=== PATIENT | male | born 1975 | race Two or more races ===

== ENCOUNTER 2019-07-24 06:05 | Emergency (ER) | payer OTHER ==
[2019-07-24 06:31] VITALS: TEMP 99.4; BMI 24.8
[2019-07-24] MEDS ORDERED: ACETAMINOPHEN 325 MG TABLET (FP) PO ONE (07:16)
[2019-07-24] MEDS ORDERED: LIDOCAINE 5% TOPICAL PATCH TP ONE (07:16)
[2019-07-24] MEDS ORDERED: IBUPROFEN 600 MG TABLET (FP) PO ONE (07:16)
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
[2019-07-24] MEDS ORDERED: DIPHTH,PERTUSS(ACELL),TET 0.5 ML DISP.SYRIN IM ONE (07:47)
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
[2019-07-24 10:02] VITALS: BP 142/75; PULSE 68
[2019-07-24] MEDS ORDERED: LIDOCAINE PATCH REMOVAL MC ONE (22:00)
== END 2019-07-24 10:02 | disposition home or self-care (01) ==
LOC: JER 06:05
PROC: 3E0234Z Introduction of Serum, Toxoid and Vaccine into Muscle, Percutaneous Approach (ICD-10-PCS; principal; 2019-07-24)
DX: M79.641 Pain in right hand (principal); V09.9XXA Pedestrian injured in unspecified transport accident, initial encounter; Y93.89 Activity, other specified; Y92.410 Unspecified street and highway as the place of occurrence of the external cause
CPT/HCPCS: 71046-TC-FY; 73110-TC-RT-FY; 73130-TC-RT-FY; 73523-TC-FY; 73562-TC-LT-FY; 73562-TC-RT-FY; 90715; 99282-25

== ENCOUNTER 2019-07-27 14:59 | Emergency (ER) | payer OTHER ==
[2019-07-27 15:08] VITALS: BP 122/83; PULSE 105; TEMP 98.4; BMI 29.0
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
== END 2019-07-27 19:05 | disposition home or self-care (01) ==
LOC: JER 14:59
DX: R07.89 Other chest pain (principal); V03.10XD Pedestrian on foot injured in collision with car, pick-up truck or van in traffic accident, subsequent encounter
CPT/HCPCS: 71260-TC; 74177-TC; 99281-25; Q9967

== ENCOUNTER 2020-02-03 04:44 | Day surgery (SDC) | payer OTHER ==
[2020-02-01 16:20] VITALS: BMI 25.5
--- NOTE | 2020-02-03 08:13 | HP ---
[employer] - Chief Complaint Chief Complaint: right knee pain - Past Medical History Allergies/Adverse Reactions: Allergies Allergy/AdvReac Type Severity Reaction Status Date / Time No Known Allergies Allergy Verified 02/01/20 16:06 - Current Medications Current Medications: Home Medications Medication Instructions Recorded NK [No Known Home Medication] 02/01/20 [facility] Physical Exam - Physical Examination General Appearance: Well Nourished, Well Developed, Alert & Oriented x3 ENT: Clear Lung: Normal air movement Extremities: Other (right knee- + swelling, + ttp, decr rom, + mcmurrays, nvi) Neurological: Intact, Alert, Oriented [facility] Impression/Plan - Impression/Plan Impression: right knee internal derangement Operative Procedure: right knee arthroscopy Date to be Performed: 02/03/20
[2020-02-03] MEDS ORDERED: DEXAMETHASONE SOD PHOSPHATE 4 MG/1 ML VIAL ONE (10:39)
[2020-02-03] MEDS ORDERED: KETOROLAC TROMETHAMINE 30 MG/1 ML VIAL ONE (10:39)
[2020-02-03] MEDS ORDERED: MIDAZOLAM HCL 2 MG/2 ML SINGLE DOSE VIAL ONE (10:39)
[2020-02-03] MEDS ORDERED: ceFAZolin SODIUM 1 GM VIAL ONE (10:39)
[2020-02-03] MEDS ORDERED: PROPOFOL 20 ML ONE (10:39)
[2020-02-03] MEDS ORDERED: LIDOCAINE 1%/EPI 1:100000 (20 ML MULTI DOSE VIAL) ONE (11:00)
[2020-02-03] MEDS ORDERED: ceFAZolin 2 GRAM PREMIX BAG IVPB ONE (11:15)
[2020-02-03] MEDS ORDERED: ONDANSETRON 4 MG/2 ML VIAL IVPUSH PRN (11:29)
[2020-02-03] MEDS ORDERED: oxyCODONE HCL 5 MG TABLET PO PRN (11:29)
[2020-02-03] MEDS ORDERED: LACTATED RINGERS SOLUTION 1,000 ML IV SCH (11:30)
--- NOTE | 2020-02-03 11:46 | OP ---
Operative Note - Note: Operative Date: 02/03/20 ([facility]) Pre-Operative Diagnosis: right knee internal derangement Operation: right knee arthroscopy with PMM Post-Operative Diagnosis: Same as Pre-op Surgeon: Oren Chun Anesthesia: General, Local Specimens Removed: shavings Estimated Blood Loss (mls): 5
--- NOTE | 2020-02-03 13:47 | SPEC ---
DATE OF OPERATION: 02/03/2020 PREOPERATIVE DIAGNOSIS: Right medial meniscal tear. POSTOPERATIVE DIAGNOSIS: Right medial meniscal tear. PROCEDURE: Right knee arthroscopy, partial medial meniscectomy. SURGICAL ATTENDING: Oren Chun MD SUBMARINE ELEMENT COORDINATOR: No administrative personal assistant. ANESTHESIA: General with LMA. CLOSURE: 4-0 nylon. COMPLICATIONS: None. CONDITION: To recovery room in stable condition. DESCRIPTION OF OPERATIVE PROCEDURE: Patient was taken to the operating room on February 03, 2020. General anesthesia with LMA was administered by the anesthesiologist. The right lower extremity was prepped and draped in the usual sterile fashion. The medial and lateral infrapatellar portal sites were infiltrated with 1% Xylocaine with epinephrine. Both portals were then made with a 15 blade followed by a blunt trocar. The scope was placed in the lateral infrapatellar portal and up into the suprapatellar pouch. The knee was inflated with a cocktail of 10 mL of 1% Xylocaine, 10 mL of 0.5% Marcaine, and 20 mL of arthroscopic saline. This was allowed to sit in the knee for a few minutes to allow the anesthetic to work intraarticularly. The scope was placed in the lateral infrapatellar portal and up into the suprapatellar pouch. The pouch was visualized to be clean. The medial and lateral gutters were visualized to be clean. The undersurface of the patella and trochlea were visualized to be intact. With valgus stress on the knee, the medial compartment was entered. The medial meniscus was visualized, probed, and found to have a complex tear of the posterior horn. This was debrided back to smooth stable meniscal tissue using a meniscal biter and arthroscopic shaver. The medial femoral condyle was run and found to be intact as well as the medial tibial plateau. At 90 degrees, the ACL was visualized, probed, and found to be intact. In the figure 4 position, the lateral compartment was entered. The lateral meniscus was visualized, probed, and found to be intact. The lateral femoral condyle was run and found to be intact as was the lateral tibial plateau. The knee was irrigated with copious amounts of irrigation and then the fluid was drained. The inferomedial portal was closed then with 4-0 nylon. Prior to pulling the trocar from the lateral infrapatellar portal, 20 mL of 0.5% Marcaine was infused into the knee for postoperative analgesia. The trocar was then pulled and the incision was closed with 4-0 nylon suture. A sterile pressure dressing was applied. Patient awakened from anesthesia and transferred to recovery in stable condition. No complication. Estimated blood loss negligible. OREN CHUN M.D. [id number]
[2020-02-03 14:41] VITALS: BP 118/79; PULSE 81; TEMP 96.6
--- NOTE | 2020-02-04 17:38 | PATH ---
Surgical Pathology Report Patient Name: CHERELLE LORENZO [facility]. Rec. #: [id number] /Age/Gender: 1975 (Age: 44) / M Account: [id number] Location: [facility] SURGICAL Taken: 02/03/2020 Received: 02/03/2020 Reported: 02/04/2020 Physicians: Oren Chun M.D. Specimen(s) Received RIGHT KNEE SHAVINGS Clinical History Right knee tear Final Diagnosis KNEE SHAVINGS, RIGHT, ARTHROSCOPY: FRAGMENTS OF CARTILAGE, BONE, DENSE FIBROCONNECTIVE TISSUE, ADIPOSE TISSUE, AND SYNOVIUM. Electronically Signed Rosana Dewitt M.D. Gross Description Received in formalin, labeled "right knee shavings," is a 4.5 x 4.0 x 0.4 cm. aggregate of mcpherosn-yellow soft tissue fragments. A circulation sales representative portion is submitted in one cassette. /02/03/2020 saudi02/03/2020
== END 2020-02-03 14:50 | disposition home or self-care (01) ==
LOC: JASU-SURG 04:44
PROVIDERS: ATTEND Orthopaedic Surgery
PROC: 0SBC4ZZ Excision of Right Knee Joint, Percutaneous Endoscopic Approach (ICD-10-PCS; principal; 2020-02-03 10:50)
DX: S83.241A Other tear of medial meniscus, current injury, right knee, initial encounter (principal); X58.XXXA Exposure to other specified factors, initial encounter; Y93.9 Activity, unspecified; Y92.9 Unspecified place or not applicable
CPT/HCPCS: 88304-TC; 94760